=== PATIENT | female | born 1930 | race Caucasian/White ===

== ENCOUNTER 2019-08-20 09:18 | Emergency (ER) | payer MEDICARE ==
--- NOTE | 2019-08-20 12:05 | ER Document Report ---
ED General - General Chief Complaint: Altered Mental Status Stated Complaint: ALTERED MENTAL STATUS Time Seen by Provider: 08/20/19 11:38 - HPI Notes: Ms. Garcia is an 89-year-old female who is been worked up over the last 3 years for a progressive dementia who is now brought into the emergency department by her daughter who says she is no longer able to cope with her mother situation at home. She is requesting placement in a long-term care facility. Patient is followed primarily by Dr. Espinosa in [facility]. She also sees Dr. Flores a neurologist in [facility]. She has had an MRI scan and a complete neurological work-up within the last year and Dr. Ambriz has diagnosed the patient with Alzheimer's disease which is felt to be progressive. Current medications include quite a pain done Azo pill and citalopram. Patient has a delusional thought process and is convinced that there is smoke in a small apartment where she lives. This is on the same property as her daughter's home. She is started to wander off at night and gets agitated with intermittent screaming and behavior that is difficult for the daughter to cope with. Patient has absolutely no insight as to her symptoms. - Related Data Allergies/Adverse Reactions: No Known Allergies Allergy (Unverified 08/20/19 10:13) Past Medical History - General Information source: Patient, Relative Cannot obtain history due to: Dementia - Social History Smoking Status: Never Smoker Chew tobacco use (# tins/day): No Frequency of alcohol use: None Drug Abuse: None Family History: Reviewed & Not Pertinent Patient has suicidal ideation: No Patient has homicidal ideation: No - Past Medical History Cardiac Medical History: Reports: None Pulmonary Medical History: Reports: None EENT Medical History: Reports: None Neurological Medical History: Denies: Hx Cerebrovascular Accident Endocrine Medical History: Reports: None Renal/ Medical History: Reports: None Malignancy Medical History: Reports: Hx Skin Cancer GI Medical History: Reports: None Musculoskeletal Medical History: Reports None Skin Medical History: Reports Other - Squamous cell carcinoma of the back Traumatic Medical History: Reports: None Past Surgical History: Reports: Other - 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 HEAD: Normocephalic atraumatic. EYES: PERRLA. Conjunctivae and sclerae clear. EARS: CANALS AND TMS CLEAR. NOSE: CLEAR. MOUTH: Moist mucosa. Good dentition. No stridor or edema. No drooling. NECK: Supple. No masses or thyromegaly. No adenopathy. Carotids 2+ without bruits. No JVD. BACK: Symmetrical without tenderness. CHEST: Respirations unlabored. Breath sounds clear and symmetrical. HEART: Regular rhythm. No murmur gallop or rub. ABDOMEN: Soft nontender without masses, organomegaly or rebound. Bowel sounds normally active. No bruits. GENITALIA: Deferred. EXTREMITIES: No edema. No calf tenderness. Cap refill less than 1.5 seconds. Dorsalis pedis and posterior tibial pulses 3+ and symmetrical. NEUROLOGICAL: GCS 14. Alert and oriented only to person. Normal gait. Fluent speech. Cranial nerves II through XII intact. Sensorimotor and cerebellar normal. Normal tone. Psychiatric: Delusional with very poor insight. Prominent confabulation. Course - Re-evaluation Re-evalutation: 08/20/19 17:15 The patient the patient is pleasantly demented but otherwise has no acute findings. Her CBC and chemistry profile as well as her urinalysis are unremarkable. Her head CT shows no acute changes and her chest x-ray also shows no acute findings. Case management nurse has seen the patient and had an ext ended conference with the daughter. She is coordinating outpatient care home placement with primary care doctor. Patient does not meet inpatient admission criteria at this time. We will give this family some as needed Ativan to use along with her other medicines and they are otherwise directed follow-up with primary care. - Vital Signs Vital signs: Temp Pulse Resp BP Pulse Ox 98.5 F 83 18 178/65 H 96 08/20/19 16:29 08/20/19 16:29 08/20/19 16:29 08/20/19 16:29 08/20/19 16:29 - Laboratory Result Diagrams: 08/20/19 11:59 08/20/19 11:59 Laboratory results interpreted by me: 08/20/19 08/20/19 11:59 11:59 Lymph % (Auto) 10.0 L Seg Neutrophils % 82.1 H Glucose 155 H - Diagnostic Test Radiology reviewed: Reports reviewed - EKG Interpretation by Me EKG shows normal: Sinus rhythm Rate: Normal Rhythm: NSR, PVC's [place]/QRS: RBBB Additional EKG results interpreted by me: 08/20/19 12:53 Old anterolateral infarct Discharge - Discharge Clinical Impression: Alzheimers disease Qualifiers: Alzheimer's disease onset: unspecified onset Dementia behavioral disturbance: with behavioral disturbance Qualified Code(s): G30.9 - Alzheimer's disease, unspecified; F02.81 - Dementia in other diseases classified elsewhere with behavioral disturbance Condition: Stable Disposition: HOME, SELF-CARE Prescriptions: Lorazepam [Ativan 0.5 mg Tablet] 0.5 mg PO Q4 PRN #30 tab PRN Reason:
[2019-08-20 12:21] LABS: ABSOLUTE LYMPHOCYTES (AUTO) 0.6 10^3/uL (0.5-4.7); ABSOLUTE MONOCYTES (AUTO) 0.4 10^3/uL (0.1-1.4); ABSOLUTE NEUT (AUTO) 4.9 10^3/uL (1.7-8.2); BASOPHILS % (AUTO) 0.3 % (0-2); EOSINOPHILS % (AUTO) 0.2 % (0-6); HEMATOCRIT 39.5 % (36.0-47.0); HEMOGLOBIN 13.3 g/dL (12.0-15.5); MEAN CORPUSCULAR HEMOGLOBIN 29.7 pg (27.0-33.4); MEAN CORPUSCULAR HGB CONC 33.7 g/dL (32.0-36.0); MEAN CORPUSCULAR VOLUME 88 fl (80-97); MONOCYTES % (AUTO) 7.4 % (3-13); PLATELET COUNT 227 10^3/uL (150-450); RED BLOOD COUNT 4.49 10^6/uL (3.72-5.28); RED CELL DISTRIBUTION WIDTH 13.9 % (11.5-14.0); SEGMENTED NEUTROPHILS % (AUTO) 82.1 % (42-78); TOTAL CELLS COUNTED % (AUTO) 100 %; WHITE BLOOD COUNT 5.9 10^3/uL (4.0-10.5)
[2019-08-20 12:40] LABS: ALBUMIN 4.4 g/dL (3.5-5.0); ALKALINE PHOSPHATASE 80 U/L (38-126); ANION GAP 11 (5-19); ASPARTATE AMINO TRANSFERASE 34 U/L (14-36); BILIRUBIN,TOTAL 0.3 mg/dL (0.2-1.3); BLOOD UREA NITROGEN 13 mg/dL (7-20); CALCIUM 9.5 mg/dL (8.4-10.2); CARBON DIOXIDE 28 mmol/L (22-30); CHLORIDE 104 mmol/L (98-107); GLUCOSE 155 mg/dL (75-110); POTASSIUM 4.1 mmol/L (3.6-5.0); TOTAL PROTEIN 7.8 g/dL (6.3-8.2)
--- NOTE | 2019-08-20 12:49 | RADIOLOGY REPORT (SQ) ---
EXAM DESCRIPTION: CT HEAD WITHOUT COMPLETED DATE/TIME: 08/20/2019 12:35 pm REASON FOR STUDY: ams COMPARISON: None. TECHNIQUE: Axial images acquired through the brain without intravenous contrast. Images reviewed wi th bone, brain and subdural windows. Additional sagittal and coronal reconstructions were generated. Images stored on PACS. All CT scanners at this facility use dose modulation, iterative reconstruction, and/or weight based d osing when appropriate to reduce radiation dose to as low as reasonably achievable (ALARA). [facility]: Dose Right [facility]: CareDose [facility]: Dose Right [facility]: Teradose 4D [facility]: Smart Petsy RADIATION DOSE: CT Rad equipment meets quality standard of care and radiation dose reduction techniq ues were employed. CTDIvol: 53.2 mGy. DLP: 937 mGy-cm. mGy. LIMITATIONS: None. FINDINGS: VENTRICLES: Normal size and contour. CEREBRUM: No masses. No hemorrhage. No midline shift. No evidence for acute infarction. Areas of l ow density in the white matter most likely chronic small vessel ischemic changes. CEREBELLUM: No masses. No hemorrhage. No alteration of density. No evidence for acute infarction. EXTRAAXIAL SPACES: No fluid collections. No masses. ORBITS AND GLOBE: No intra- or extraconal masses. Normal contour of globe without masses. CALVARIUM: No fracture. 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 SOFT TISSUES: No mass or hematoma. OTHER: No other significant finding. IMPRESSION: CHRONIC MICROVASCULAR ISCHEMIA. NO ACUTE IMAGING FINDINGS IN THE BRAIN. LEFT FRONTAL SI NUS OSTEOMA. EVIDENCE OF ACUTE STROKE: NO. COMMENT: Quality ID # [id number]: Final reports with documentation of one or more dose reduction techniques (e.g., Automated exposure control, adjustment of the mA and/or kV according to patient size, use of iterative reconstruction technique) TECHNICAL DOCUMENTATION: JOB ID: [id number] [employer]- All Rights Reserved Reading location - IP/workstation name: [email or web address]
--- NOTE | 2019-08-20 13:01 | RADIOLOGY REPORT (SQ) ---
EXAM DESCRIPTION: CHEST 2 VIEWS COMPLETED DATE/TIME: 08/20/2019 12:44 pm REASON FOR STUDY: ams COMPARISON: None. EXAM PARAMETERS: NUMBER OF VIEWS: two views TECHNIQUE: Digital Frontal and Lateral radiographic views of the chest acquired. RADIATION DOSE: NA LIMITATIONS: none FINDINGS: LUNGS AND PLEURA: No opacities, masses or pneumothorax. No pleural effusion. MEDIASTINUM AND HILAR STRUCTURES: No masses or contour abnormalities. HEART AND VASCULAR STRUCTURES: Heart normal size. No evidence for failure. BONES: Osteopenic with lower thoracic/ upper lumbar compression fractures HARDWARE: Clips right upper quadrant post cholecystectomy. OTHER: No other significant finding. IMPRESSION: NO ACUTE RADIOGRAPHIC FINDING IN THE CHEST. TECHNICAL DOCUMENTATION: JOB ID: [id number] [employer]- All Rights Reserved Reading location - IP/workstation name: [email or web address]
[2019-08-20 16:21] LABS: APPEARANCE,URINE CLEAR; BILIRUBIN,URINE NEGATIVE (NEGATIVE); COLOR,URINE STRAW; GLUCOSE, URINE NEGATIVE (NEGATIVE); KETONES,URINE NEGATIVE (NEGATIVE); LEUKOCYTE ESTERASE,URINE NEGATIVE (NEGATIVE); NITRITE,URINE NEGATIVE (NEGATIVE); PROTEIN,URINE NEGATIVE (NEGATIVE); URINE SPECIFIC GRAVITY 1.006; UROBILINOGEN,URINE NEGATIVE mg/dL (<2.0)
[2019-08-20 16:30] VITALS: BP 178/65
--- NOTE | 2019-08-21 11:49 | EKG REPORT ---
SEVERITY:- ABNORMAL ECG - SINUS RHYTHM VENTRICULAR PREMATURE COMPLEX RIGHT BUNDLE BRANCH BLOCK PROBABLE ANTEROLATERAL INFARCT, OLD : Confirmed by: Estefanía Crisostomo MD 21-Aug-2019 11:49:17
== END 2019-08-20 17:54 | disposition home or self-care (01) ==
LOC: ER 09:18
DX: G30.9 Alzheimer's disease, unspecified (principal); F02.81 Dementia in other diseases classified elsewhere, unspecified severity, with behavioral disturbance; Z91.83 Wandering in diseases classified elsewhere; I49.3 Ventricular premature depolarization; I45.10 Unspecified right bundle-branch block; Z79.899 Other long term (current) drug therapy; Z86.73 Personal history of transient ischemic attack (TIA), and cerebral infarction without residual deficits
CPT/HCPCS: 36415; 70450; 71046; 80053; 81001; 85025; 93005; 93010; 99285